=== PATIENT | male | born 1960 | race Caucasian/White ===

== ENCOUNTER 2020-08-02 09:40 | Outpatient (CLI) | payer OTHER, SELFPAY ==
--- NOTE | ~2020-08-02 | XR_ITS ---
EXAMINATION: XR chest 2V DATE: 08/02/2020 10:00 INDICATION: Other specified symptoms and signs involving the circulatory system. TECHNIQUE: Frontal and lateral views of the chest were obtained. COMPARISON: Chest 2 views 02/02/2013 FINDINGS: There is mild atelectasis in the lower lung zones. There is chronic blunting of left rib cutter ior costophrenic angle. No pneumothorax. The heart size is normal. There is a left chest wall pacer w ith leads in the right atrium and right ventricle. There is chronic anterior wedging of multiple vert ebral bodies. IMPRESSION: 1. Chronic blunting of left posterior costophrenic angle, consistent with scarring versus tiny pleura l effusion. 2. Mild atelectasis in the lower lung zones. Reviewed, dictated and finalized at location A. DING CLERK IMPRESSION: 1. Chronic blunting of left posterior costophrenic angle, consistent with scarr ing versus tiny pleural effusion. 2. Mild atelectasis in the lower lung zones.
[2020-08-02 10:15] LABS: Basophils Absolute Auto 0.1 K/mm3 (0.0-0.1); Basophils Percent Auto 0.7 % (0.2-1.2); Eosinophils Absolute Auto 0.4 K/mm3 (0-0.3); Eosinophils Percent Auto 3.7 % (0-4.4); Hematocrit 51.8 % (42.0-52.0); Hemoglobin 16.9 g/dL (14.0-18.0); Immature Granulocyte Absolute 0.03 K/mm3 (0.00-0.031); Immature Granulocyte Percent A 0.3 % (0-0.5); Lymphocytes Absolute Auto 2.96 K/mm3 (0.9-3.2); Lymphocytes Percent Auto 28.7 % (18.3-44.2); Mean Corpuscular HGB Conc 32.6 g/dl (32-36); Mean Corpuscular Hemoglobin 29.2 pg (26-34); Mean Corpuscular Volume 89.5 fl (80-100); Mean Platelet Volume 9.4 fl (7.4-10.4); Monocytes Absolute Auto 0.8 K/mm3 (0.1-0.6); Monocytes Percent Auto 8.1 % (2.6-8.5); Neutrophils Absolute Auto 6.1 K/mm3 (1.3-6.7); Neutrophils Percent Auto 58.5 % (45.5-73.1); Platelet Count Result 245 k/mm3 (150-375); Red Blood Count 5.79 M/mm3 (4.6-6.20); Red Cell Distribution Width 13.8 % (11.5-14.5); White Blood Count 10.3 K/mm3 (4.5-10.0)
[2020-08-02 10:42] LABS: Alanine Aminotransferase 24 U/L (4-50); Albumin Level 4.1 g/dL (3.5-5.1); Alkaline Phosphatase 95 U/L (38-126); Anion Gap 0 mmol/L (8-16); Aspartate Amino Transferase 20 U/L (17-59); Bilirubin,Total 0.5 mg/dL (0.2-1.3); Blood Urea Nitrogen 15 mg/dL (9-20); Calcium 8.6 mg/dL (8.4-10.2); Carbon Dioxide 32 mmol/L (22-30); Chloride 107 mmol/L (98-107); Cholesterol 237 mg/dL (0-200); Estimated Glomerular Filt Rate > 60; Glucose 98 mg/dL (75-110); HDL Direct 40 mg/dL; Potassium 4.3 mmol/L (3.4-5.0); Sodium 139 mmol/L (137-145); Triglycerides 100 mg/dL (<150)
[2020-08-02 10:56] LABS: LDL Cholesterol Direct 171 mg/dL
[2020-08-02 11:33] LABS: Vitamin D 25 Hydroxy 15.4 ng/mL
[2020-08-02 12:13] LABS: Prostate Specific Antigen 2.7 ng/mL (< OR = 4.0)
== END 2020-08-02 09:41 | disposition home or self-care (01) ==
PROVIDERS: PCP Family Medicine; Visit Provider Family Medicine
DX: R09.89 Other specified symptoms and signs involving the circulatory and respiratory systems (principal); Z72.0 Tobacco use; I10 Essential (primary) hypertension; E78.2 Mixed hyperlipidemia; Z13.220 Encounter for screening for lipoid disorders; Z12.5 Encounter for screening for malignant neoplasm of prostate; E55.9 Vitamin D deficiency, unspecified
CPT/HCPCS: 36415; 71046; 80048; 80061; 80076; 82306; 84153; 84443; 85025; G0103

== ENCOUNTER 2021-04-29 08:32 | Outpatient (CLI) | payer OTHER, SELFPAY ==
--- NOTE | ~2021-04-29 | US_ITS ---
EXAMINATION: US renal BI DATE: 04/29/2021 09:09 INDICATION: Hematuria TECHNIQUE: Multiple grayscale and Doppler ultrasound images of the kidneys were obtained. COMPARISON: None. FINDINGS: The right kidney measures 11.5 x 5.9 x 6.4 cm. The left kidney measures 13.1 x 5.8 x 6.1 cm . There is an approximately 4.9 x 3.0 cm cystic lesion of the left kidney upper pole which appears to have a peripheral solid nodular component. The kidneys demonstrate normal parenchymal echogenicity. There is no hydronephrosis. The bladder is normal. IMPRESSION: 1. Cystic lesion of the left kidney with possible solid nodular component. Further evaluation by CT o r MRI without and with contrast is recommended. Reviewed, dictated and finalized at location A. IMPRESSION: 1. Cystic lesion of the left kidney with possible solid nodular component. Furt her evaluation by CT or MRI without and with contrast is recommended.
== END 2021-04-29 08:33 | disposition home or self-care (01) ==
LOC: ANHIMG 08:35
PROVIDERS: PCP Family Medicine; Visit Provider Family Medicine
DX: R31.9 Hematuria, unspecified (principal)
CPT/HCPCS: 76775